=== PATIENT | male | born 1950 | race Hispanic/Latino ===

== ENCOUNTER 2022-08-21 07:12 | Day surgery (SDC) | payer OTHER ==
[2022-08-19 13:15] LABS: BASOPHILS % (AUTO) 0.6 % (0.0-5.0); EOSINOPHILS % (AUTO) 2.9 % (0.0-8.0); LYMPHOCYTES % (AUTO) 26.8 % (21.0-51.0); MEAN CORPUSCULAR HEMOGLOBIN 31.7 pg (27.0-33.0); MEAN CORPUSCULAR HGB CONC 34.3 g/dL (32.0-36.0); MEAN CORPUSCULAR VOLUME 92.5 fL (79-99); MONOCYTES % (AUTO) 10.4 % (3.0-13.0); NEUTROPHILS % (AUTO) 57.8 % (40.0-77.0); PLATELET COUNT (AUTO) 186 K/uL (130-400); RED BLOOD CELL COUNT(AUTO) 4.54 MIL/uL (4.50-6.20); RED CELL DISTRIBUTION WIDTH 14.2 % (11.0-15.5); WHITE BLOOD COUNT (AUTO) 5.2 K/uL (4.8-10.8)
[2022-08-19 13:18] LABS: APPEARANCE,URINE CLEAR (CLEAR); BILIRUBIN,URINE NEGATIVE (NEGATIVE); COLOR,URINE LIGHT-YELLOW (YELLOW); GLUCOSE, URINE (UA) NEGATIVE (NEGATIVE); KETONES,URINE NEGATIVE (NEGATIVE); LEUKOCYTE ESTERASE ,URINE NEGATIVE Leu/uL (NEGATIVE); NITRATE,URINE NEGATIVE (NEGATIVE); OCCULT BLOOD,URINE NEGATIVE (NEGATIVE); PROTEIN,URINE NEGATIVE (NEGATIVE); UROBILINOGEN,URINE 0.2 mg/dL (0.2-1.0)
[2022-08-19 13:26] LABS: CREATININE 0.7 mg/dL (0.5-1.5); POTASSIUM 3.3 mmol/L (3.5-5.1)
[2022-08-19 13:28] LABS: PROTHROMBIN TIME 10.9 SEC (9.6-11.6)
[2022-08-19 13:29] LABS: PARTIAL THROMBOPLASTIN TIME 32.2 SEC (26.3-35.5)
[2022-08-20 09:23] VITALS: BP 185/110
[~2022-08-21] VITALS: Ht 172.7 cm; Wt 119.7 kg
[2022-08-21] VITALS (19 sets, daily range): BP systolic 132–202; BP diastolic 51–108
[~2022-08-21 07:12] MED LIST: AMLO-257 PO; AMLO2.5T4 PO; APIX5TAB PO; ATOR20TA65 PO; CITA-107 PO; CYAN100084 PO; CYPR4TAB46 PO; DOCU100C33 PO; FAMO20TA8 PO; FERS325 PO; LISI40TA9 PO; PROP150T28 PO; TRAZ-187 PO
[2022-08-21] MEDS ORDERED: LIDOCAINE HCL-MPF 2% 10ML AMP IJ ONE ×11 (08:42→08:44)
[2022-08-21] MEDS ORDERED: PROPOFOL 10 MG/ML 20ML VIAL IV ONE ×2 (08:43→09:11)
[2022-08-21] MEDS ORDERED: DiphenhydrAMINE HCL 50 MG/ML VIAL IVP SCH (09:00)
[2022-08-21] MEDS ORDERED: 0.9%NACL 1000ML 1,000 ML IV SCH (09:00)
[2022-08-21] MEDS ORDERED: LIDOCAINE PF 100MG/5ML (2%) SYRINGE 5ML ONE (09:10)
[2022-08-21] MEDS ORDERED: 0.9%NACL 1000ML 1,000 ML IV ONE (12:28)
== END 2022-08-21 11:10 | disposition home or self-care (01) ==
LOC: DAH 07:12
PROVIDERS: ATTEND Internal Medicine Interventional Cardiology
DX: I48.20 Chronic atrial fibrillation, unspecified (principal); I34.0 Nonrheumatic mitral (valve) insufficiency; I10 Essential (primary) hypertension; E78.2 Mixed hyperlipidemia; Z83.3 Family history of diabetes mellitus; Z98.890 Other specified postprocedural states; Z79.899 Other long term (current) drug therapy; Z79.01 Long term (current) use of anticoagulants
CPT/HCPCS: 80048; 85025; 85610; 85730; 81003; 36415; 93005 ×4; 87426; 92960; 93312; A4223 ×3; A4663; J7030; J2001; J2704 ×2; J3490 ×11; A4215; A4657; A7002; A4222; A4221; A4216; A4606; 99156

== ENCOUNTER 2023-07-31 07:30 | Day surgery (SDC) | payer OTHER ==
[~2023-07-31 07:30] MED LIST changes: -PROP150T28 PO
[2023-07-31 08:00] VITALS: BP 164/86; PULSE 86; RESP 18
[2023-07-31] MEDS ORDERED: COSYNTROPIN 0.25 MG VIAL IVP ONE ×2 (08:00→08:30)
[2023-07-31 09:30] VITALS: BP 155/82; PULSE 80; RESP 17
== END 2023-07-31 09:30 | disposition home or self-care (01) ==
LOC: DAH 07:30
PROVIDERS: ATTEND Family Medicine
DX: E27.8 Other specified disorders of adrenal gland (principal); Z79.899 Other long term (current) drug therapy
CPT/HCPCS: 80400 ×3; 82533 ×3; 82948; 36415; 96374; A4223 ×3; J0834; A4215; A4222; A4221; A4663; A4216; A4606